=== PATIENT | female | born 1950 | race Caucasian/White ===

== ENCOUNTER 2017-02-04 00:15 | Emergency (ER) | payer BC, OTHER ==
--- NOTE | 2017-02-04 00:36 | ED.PDOC ---
History of Present Illness - General Chief Complaint: Abdominal Pain Stated Complaint: abdominal pain Time Seen by Provider: 02/04/17 00:25 Information Source: patient, RN notes reviewed, Vital Signs reviewed Exam Limitations: no limitations - History of Present Illness Initial Comments: Ms. Derrick Forrest Quinn 66 y/o female stated she had onset of sharp left upper quadrant abdominal pain after eating popcorn this afternoon which had been steady and pain getting worse felt nauseated but no vomiting no diarrhea, regular bm,no dysuria,no hematuria.She has dm2 and htn. Abdominal Pain Onset Location: [facility], other - 10 hours ago Pain Radiation: no radiation Quality: moderate, steady, stabbing Timing/Duration: constant Improving Factors: nothing Worsening Factors: other - standing and laying down Associated Symptoms: denies symptoms Review of Systems - Review of Systems Constitutional: States: no symptoms reported EENTM: States: no symptoms reported Respiratory: States: no symptoms reported Cardiology: States: no symptoms reported Gastrointestinal/Abdominal: States: see HPI Genitourinary: States: no symptoms reported Musculoskeletal: States: no symptoms reported Skin: States: no symptoms reported Neurological: States: no symptoms reported Endocrine: States: no symptoms reported Hematologic/Lymphatic: States: no symptoms reported Past Medical History (General) - Patient Medical History Hx Seizures: No Hx Stroke: No Hx Dementia: No Hx Asthma: No Hx of COPD: No Hx Cardiac Disorders: No Hx Congestive Heart Failure: No Hx Hypertension: Yes Hx Thyroid Disease: No Hx Diabetes: Yes - NIIDN Hx Gastroesophageal Reflux: Yes Hx Renal Disease: No Hx of HIV: No Surgical History: tonsillectomy, other - right knee,left foot - Social History Hx Tobacco Use: No - Activities of Daily Living Patient Lives Alone: No Grooming Ability: Independent Eating (Feeding) Ability: Independent Toileting Ability: Independent - Female History Patient is a Female of Child Bearing Age (10 -59 yrs old): No Family Medical History - Family History Mother Family History: Unknown Hx Family Hypertension: Yes - mom Physical Exam - Physical Exam General Appearance: Alert, No apparent distress Eyes, Ears, Nose, Throat Exam: PERRL/EOMI, normal ENT inspection, TMs normal, pharynx normal Neck: non-tender, full range of motion, supple Respiratory: chest non-tender, lungs clear, normal breath sounds Cardiovascular/Chest: normal peripheral pulses, regular rate, rhythm, no edema, no gallop, no JVD, no murmur Peripheral Pulses: No deficit Gastrointestinal/Abdominal: normal bowel sounds, no organomegaly, tenderness - left upper quadrant Back Exam: normal inspection, no CVA tenderness, no vertebral tenderness Extremity: normal range of motion, non-tender, normal inspection, no pedal edema , no calf tenderness Neurologic: no motor/sensory deficits, alert, normal mood/affect, oriented x 3 Progress - Results/Orders Results/Orders: 02/04/17 00:43 IV Care:Saline Lock per Protoc QSHIFT 02/04/17 01:00 URINALYSIS Stat 02/04/17 01:09 Lactated Ringers [Lr] 1,000 ml IVS ONCE 02/04/17 01:24 Abdomen/Pelvis w/Contrast [CT] Stat 02/04/17 01:25 Hold Metformin x 48Hrs [id number] Laboratory Results WBC 10.4 K/mm3 (4.8-10.8) 02/04/17 00:45 RBC 5.81 M/mm3 (4.20-5.40) H 02/04/17 00:45 Hgb 16.3 gm/dL (12.0-16.0) H 02/04/17 00:45 Hct 50.3 % (36.0-47.0) H 02/04/17 00:45 MCV 86.6 fl (81.0-99.0) 02/04/17 00:45 MCH 28.0 pg (27.0-31.0) 02/04/17 00:45 MCHC 32.4 g/dL (33.0-37.0) L 02/04/17 00:45 RDW 16.4 % (11.5-14.5) H 02/04/17 00:45 Plt Count 196 K/mm3 (130-400) 02/04/17 00:45 MPV 8.2 fl (7.40-10.4) 02/04/17 00:45 Absolute Neuts (auto) 8.60 K/uL (1.8-6.8) H 02/04/17 00:45 Absolute Lymphs (auto) 1.10 K/uL (1.0-3.4) 02/04/17 00:45 Absolute Monos (auto) 0.40 K/uL (0.2-0.8) 02/04/17 00:45 Absolute Eos (auto) 0.20 K/uL (0.0-0.4) 02/04/17 00:45 Absolute Basos (auto) 0.10 K/uL (0.0-0.1) 04 00:45 Neutrophils % 82.4 % (42.0-78.0) H 02/04/17 00:45 Lymphocytes % 10.5 % (20.0-50.0) L 02/04/17 00:45 Monocytes % 4.2 % (2.0-9.0) 02/04/17 00:45 Eosinophils % 2.3 % (1.0-5.0) 02/04/17 00:45 Basophils % 0.6 % (0.0-2.0) 02/04/17 00:45 D-Dimer, Quantitative 256 ng/mL (0-230) H* 02/04/17 00:45 Sodium 138 mmol/L (135-145) 02/04/17 00:45 Potassium 3.8 mmol/L (3.6-5.0) 02/04/17 00:45 Chloride 100 mmol/L (101-111) L 02/04/17 00:45 Carbon Dioxide 31 mmol/L (21-31) 02/04/17 00:45 Anion Gap 10.8 (12-18) L 02/04/17 00:45 BUN 12 mg/dL (7-18) 02/04/17 00:45 Creatinine 0.56 mg/dL (0.6-1.3) L 02/04/17 00:45 BUN/Creatinine Ratio 21.4 (10-20) H 02/04/17 00:45 Random Glucose 166 mg/dL (70-105) H 02/04/17 00:45 Serum Osmolality 279.2 mOsm/L (275-295) 02/04/17 00:45 Calcium 9.0 mg/dL (8.4-10.2) 02/04/17 00:45 Total Bilirubin 1.7 mg/dL (0.2-1.0) H 02/04/17 00:45 AST 109 IU/L (10-42) H 02/04/17 00:45 ALT 63 IU/L (10-60) H 02/04/17 00:45 Alkaline Phosphatase 131 IU/L (42-121) H 02/04/17 00:45 Serum Total Protein 7.7 gm/dL (6.4-8.2) 02/04/17 00:45 Albumin 4.3 g/dl (3.2-5.5) 02/04/17 00:45 Globulin 3.4 gm/dL (2.3-3.5) 02/04/17 00:45 Albumin/Globulin Ratio 1.3 (1.1-1.9) 02/04/17 00:45 Lipase 38 U/L (22-51) 02/04/17 00:45 Urine Color [place] (Yellow) H 02/04/17 01:00 Urine Appearance Sl cloudy (Clear) 02/04/17 01:00 Urine pH 5.5 (4.5-7.8) 02/04/17 01:00 Ur Specific [place] 1.025 (1.005-1.030) 02/04/17 01:00 Urine Protein 100 mg/dL H 02/04/17 01:00 Urine Glucose (UA) 500 mg/dL (Negative) H 02/04/17 01:00 Urine Ketones Trace mg/dL (NEGATIVE) 02/04/17 01:00 Urine Blood Negative (Negative) 02/04/17 01:00 Urine Nitrite Negative 02/04/17 01:00 Urine Bilirubin Moderate (NEGATIVE) 02/04/17 01:00 Urine Urobilinogen 1.0 mg/dL (0.2-1.0) 02/04/17 01:00 Ur Leukocyte Esterase Negative (Negative) 02/04/17 01:00 Urine RBC 0-1 /hpf 02/04/17 01:00 Urine WBC 20-30 /hpf H 02/04/17 01:00 Ur Epithelial Cells 10-20 /hpf 02/04/17 01:00 Urine Bacteria 1+ 02/04/17 01:00 Vital Signs - 24 hr 02/04/17 00:31 Temperature 98.2 F Pulse Rate [ 87 Tele] Respiratory 22 Rate Blood Pressure 160/128 [left forearm] O2 Sat by Pulse 88 L Oximetry - EKG/XRAY/CT EKG: Sinus - NSR,fascicular block, no ST T wave changes CT: abdomen/pelvis:hepatic steatosis;colonic diverticulosis,NO diverticulitis Departure - Departure Clinical Impression: Abdominal pain Qualifiers: Abdominal location: left upper quadrant Qualifier Code: (R10.12) Left upper quadrant pain Urinary tract infection Qualifiers: Urinary tract infection type: site unspecified Hematuria presence: without hematuria Qualifier Code: (N39.0) Urinary tract infection, site not specified Time of Disposition: 02:45 Disposition: Discharge to Home or Self Care Departure Forms: ED Discharge - Pt. Copy, Patient Portal Self Enrollment Instructions: DI for Abdominal Pain-Adult Diet: low fat, low cholesterol, diabetic diet, low salt diet, other - AVOID GREASY SPICY FOODS UNTIL BETTER Prescriptions: Nitrofurantoin Monohydrate Mac [Macrobid] 100 mg PO BID #10 cap Home Medications: Ambulatory Orders Cyclobenzaprine HCl [Flexeril] 10 mg PO BEDTIME #10 tab 02/19/15 Fesoterodine Fumarate [Toviaz] 4 mg PO DAILY 02/19/15 Hydrochlorothiazide 25 mg PO DAILY 02/19/15 Ibuprofen [Motrin] 600 mg PO TID PRN #20 tab 02/19/15 Losartan Potassium/Hydroc 100-25 mg 100 mg PO DAILY 02/19/15 Methylprednisolone [Medrol Dose Ezequiel] 4 mg PO DAILY #1 pack 02/19/15 Pantoprazole Sodium 40 mg PO DAILY 02/19/15 Pregabalin [Lyrica] 150 mg PO DAILY 02/19/15 Tramadol HCl 50 mg PO Q6-8H PRN #10 tab 02/19/15 Nitrofurantoin Monohydrate Mac [Macrobid] 100 mg PO BID #10 cap 02/04/17 Additional Instructions: CONTINUE WITH HOME MEDICATIONS;FOLLOW UP WITH PRIMARY MD 02/06/2017 patient to call for appointment
[2017-02-04] MEDS ORDERED: LACTATED RINGERS 1,000 ML IVS PRN (00:53)
[2017-02-04] MEDS ORDERED: LACTATED RINGERS 1,000 ML IVS ONE (01:09)
[2017-02-04] MEDS ORDERED: MORPHINE SULFATE INJ 10 MG/ML VIAL IV ONE (01:25)
[2017-02-04] MEDS ORDERED: PROCHLORPERAZINE INJ 10 MG/2 ML VIAL IV ONE (01:26)
--- NOTE | 2017-02-04 02:22 | CT ---
EXAM: CT ABDOMEN PELVIS WITH CONTRAST CLINICAL INDICATION: pain, MAIN TECHNIQUE: Multiple axial CT images of the abdomen and pelvis were obtained after the uneventful administration of intravenous, but no oral contrast. Coronal and sagittal reformatted images were included This exam was performed according to our departmental dose-optimization program which includes use of Automated Exposure Control, adjustment of the mA and/or kV according to patient size and/or use of iterative reconstruction technique. COMPARISON: None. FINDINGS: Chest: The visualized lung bases are clear, without nodule, lung masses or airspace consolidation. There are no pleural or pericardial effusions. Heart size appears within normal limits. Abdomen/Pelvis: The liver has normal size and contours. There is diffuse hepatic hypodensity. No focal intrahepatic mass lesion is identified. No abnormal enhancement appreciated within the liver parenchyma. There is no intra- or extrahepatic biliary ductal dilatation. Gallbladder is present. The spleen, pancreas and adrenal glands have a normal contrast enhanced CT appearance. The kidneys have a normal contrast enhanced appearance, with homogeneous enhancement, and there is no obstructive uropathy. There is scattered diverticulosis without CT evidence of diverticulitis Loops of bowel are normal in caliber, without signs of obstruction or adjacent inflammatory changes. A normal appendix is not confidently identified, but no inflammatory changes are identified in the right lower quadrant, or elsewhere in the abdomen. Uterus and adnexa have an unremarkable contrast enhanced appearance.. Urinary bladder is grossly unremarkable. No free air or free fluid in the abdomen or pelvis. No enlarged lymphadenopathy identified in the abdomen or pelvis. Visualized vascular structures are grossly unremarkable, with normal course and caliber of the aorta and branch vessels. No suspicious osseous lesions identified. There is multilevel degenerative disc disease, most advanced at L3-L4. There are moderate hypertrophic degenerative changes of the visualized spine. IMPRESSION: 1. No CT evidence for acute intra-abdominal process. 2. diverticulosis of CT evidence of diverticulitis. 3. Moderate diffuse hepatic steatosis. Electronically signed by: Mychal Hicks MD 02/04/2017 2:22 AM CDT
[2017-02-04] MEDS ORDERED: NITROFURANTOIN MONO (ER DISP) 100 MG CAP PO ONE (02:40)
[2017-02-04 03:03] VITALS: BP 128/89; TEMP 97.4; O2SAT 92
== END 2017-02-04 06:05 | disposition home or self-care (01) ==
LOC: ER 00:15
DX: N39.0 Urinary tract infection, site not specified (principal); R10.12 Left upper quadrant pain; K21.9 Gastro-esophageal reflux disease without esophagitis; E11.9 Type 2 diabetes mellitus without complications; I10 Essential (primary) hypertension
CPT/HCPCS: 36415; 74177; 80053; 81001; 83690; 85025; 85379; 87086; 93005; J0780; J2270; J7120

== ENCOUNTER → 2018-01-13 | Outpatient (CLI) | payer MEDICARE, OTHER | LOC: GMAB 11:55 | PROVIDERS: ATTEND Family Medicine | DX: I10 Essential (primary) hypertension (principal) ==

== ENCOUNTER → 2018-01-21 | Outpatient (CLI) | payer MEDICARE, OTHER ==
--- NOTE | 2018-01-23 15:27 | MAM ---
EXAM DESCRIPTION: 3D Screening BILATERAL : Digital Mammography. CLINICAL HISTORY: 67 years Female SCREENING . No complaints. No family history of breast cancer. Postmenopausal. No HRT. COMPARISON: 2-D digital screening bilateral study 05/02/2009. No prior reports available. TECHNIQUE: Bilateral CC and MLO projection full-field images, 3-D tomosynthesis digital mammographic technique. Also bilateral synthesized CC/ MLO full-field images. CAD not utilized. FINDINGS: The breast parenchymal density pattern is: Almost entirely fatty. No skin thickening or nipple retraction bilateral axillary lymph nodes, larger on the left. Bilateral solitary microcalcifications, more on the left.. No focal, stellate mass or density, focal asymmetry , and no suspicious microcalcifications bilaterally. Stable mammograms compared to prior study, taking into account differences in mammographic technique IMPRESSION: BI-RADS CATEGORY: 2 - BENIGN FINDINGS. FOLLOW UP: Routine digital bilateral screening, one year interval from January 2018. Written communication explaining the IMPRESSION and follow-up, will be mailed to the patient and referring health care provider. According to the [employer], yearly mammograms are recommended starting at age 40 and continuing as long as a woman is in good health. Any breast change noted on a breast self-exam should be reported promptly to the patient's healthcare provider. Breast MRI is recommended for women with an approximately 20-25% or greater lifetime risk of breast cancer, including women with a strong family history of breast or ovarian cancer and women who have been treated for Hodgkin's disease. A negative mammographic report should not delay tissue diagnosis in patients with significant clinical history or physical findings. Extremely dense breast tissue limits the sensitivity of digital mammography. Electronically signed by: Michael Cruz MD 01/23/2018 3:26 PM CDT
== END | disposition home or self-care (01) ==
LOC: MAMMO 08:30
PROVIDERS: ATTEND Family Medicine
DX: Z12.31 Encounter for screening mammogram for malignant neoplasm of breast (principal)

== ENCOUNTER 2018-12-12 14:35 | Emergency (ER) | payer MEDICARE, OTHER ==
[2018-12-12] MEDS ORDERED: diltiaZEM DRIP 125 MG/25 ML VIAL IVPB ONE (16:11)
[2018-12-12] MEDS ORDERED: SODIUM CHLORIDE 0.9% 100ML 100 ML IVPB ONE (16:12)
--- NOTE | 2018-12-12 16:12 | ED.PDOC ---
History of Present Illness - General Chief Complaint: General Stated Complaint: Tachycardia Time Seen by Provider: 12/12/18 16:09 Source: patient, RN notes reviewed Exam Limitations: no limitations - History of Present Illness Initial Comments: THIS PATIENT RECENTLY UNDERWENT A SLEEVE SURGERY BY DR. MICHEL. YESTERDAY HOME HEALTH NURSE CHECKED ON HER AND WAS NOTED TO HAVE TACHYCARDIA OF AROUND 140. SHE WAS SEEN AGAIN TODAY AND HER TACHYCARDIA CONTINUED. SHE WAS SENT OVER TO THE ED. THE PATIENT OTHERWISE SAYS SHE IS ASYMPTOMATIC. DENIES ANY SOB OR CP Timing/Duration: unsure, other - TWO DAYS Severity: moderate Improving Factors: nothing Worsening Factors: nothing Associated Symptoms: denies symptoms Allergies/Adverse Reactions: Allergies Penicillin G Allergy (Mild, Verified 12/12/18 15:11) Home Medications: Ambulatory Orders Fesoterodine Fumarate [Toviaz] 4 mg PO DAILY 02/19/15 Pregabalin [Lyrica] 150 mg PO DAILY 02/19/15 Review of Systems - Review of Systems Constitutional: States: no symptoms reported EENTM: States: no symptoms reported Respiratory: States: no symptoms reported Cardiology: States: palpitations Gastrointestinal/Abdominal: States: no symptoms reported Genitourinary: States: no symptoms reported Musculoskeletal: States: no symptoms reported Skin: States: no symptoms reported Neurological: States: no symptoms reported Past Medical History (General) - Patient Medical History Hx Seizures: No Hx Stroke: No Hx Dementia: No Hx Asthma: No Hx of COPD: No Hx Cardiac Disorders: No Hx Congestive Heart Failure: No Hx Hypertension: Yes Hx Thyroid Disease: No Hx Diabetes: No - No current dx but feels she may be diabetic Hx Gastroesophageal Reflux: Yes Hx Renal Disease: No Hx of HIV: No Hx MRSA: No Surgical History: other - Vaccination History Hx Tetanus, Diphtheria Vaccination: Yes Hx Influenza Vaccination: Yes Hx Pneumococcal Vaccination: Yes Immunizations Up to Date: Yes - Social History Hx Tobacco Use: No Hx Alcohol Use: No Hx Substance Use: No Hx Substance Use Treatment: No Hx Depression: No Hx Physical Abuse: No Hx Emotional Abuse: No Hx Suspected Abuse: No Family Medical History - Family History Mother Family History: Unknown Living Status: Hx Family Hypertension: Yes - mom Physical Exam - Physical Exam General Appearance: Alert, Anxious, Obese, Well Developed, Well Groomed Eye Exam: bilateral normal Ears, Nose, Throat: hearing grossly normal, normal ENT inspection Neck: non-tender, full range of motion, supple Respiratory: chest non-tender, lungs clear, normal breath sounds, no respiratory distress, no accessory muscle use Cardiovascular/Chest: normal peripheral pulses, no murmur, tachycardia, irregularly irregular Peripheral Pulses: radial,right: 2+, radial,left: 2+ Gastrointestinal/Abdominal: normal bowel sounds, non tender, soft Extremity: normal range of motion, non-tender Neurologic: alert, normal mood/affect, oriented x 3 Progress - Progress Progress: 12/12/18 18:54 12/12/18 14:30 EKG .ONCE 12/12/18 16:30 diltiaZEM DRIP [Cardizem Drip] 125 mg Sodium Chloride 0.9% 100Ml [NS (NACL 0.9%) 100ml] 100 ml IVPB PRN 12/12/18 17:20 CTA Chest [CT] Stat Laboratory Results WBC 12.1 K/mm3 (4.8-10.8) H 12/12/18 16:33 RBC 5.48 M/mm3 (4.20-5.40) H 12/12/18 16:33 Hgb 16.1 gm/dL (12.0-16.0) H 12/12/18 16:33 Hct 48.6 % (36.0-47.0) H 12/12/18 16:33 MCV 88.6 fl (81.0-99.0) 12/12/18 16:33 MCH 29.3 pg (27.0-31.0) 12/12/18 16:33 MCHC 33.1 g/dL (33.0-37.0) 12/12/18 16:33 RDW 14.8 % (11.5-14.5) H 12/12/18 16:33 Plt Count 238 K/mm3 (130-400) 12/12/18 16:33 MPV 9.0 fl (7.40-10.4) 12/12/18 16:33 Absolute Neuts (auto) 9.80 K/uL (1.8-6.8) H 12/12/18 16:33 Absolute Lymphs (auto) 1.40 K/uL (1.0-3.4) 12/12/18 16:33 Absolute Monos (auto) 0.70 K/uL (0.2-0.8) 12/12/18 16:33 Absolute Eos (auto) 0.10 K/uL (0.0-0.4) 12/12/18 16:33 Absolute Basos (auto) 0.10 K/uL (0.0-0.1) 12/12/18 16:33 Neutrophils % 81.2 % (42.0-78.0) H 12/12/18 16:33 Lymphocytes % 11.9 % (20.0-50.0) L 12/12/18 16:33 Monocytes % 5.5 % (2.0-9.0) 12/12/18 16:33 Eosinophils % 0.9 % (1.0-5.0) L 12/12/18 16:33 Basophils % 0.5 % (0.0-2.0) 12/12/18 16:33 D-Dimer, Quantitative 3.77 mg/L FEU (0-0.49) H* 12/12/18 16:33 Sodium 137 mmol/L (135-145) 12/12/18 16:33 Potassium 3.2 mmol/L (3.6-5.0) L 12/12/18 16:33 Chloride 98 mmol/L (101-111) L 12/12/18 16:33 Carbon Dioxide 26 mmol/L (21-31) 12/12/18 16:33 Anion Gap 16.2 (12-18) 12/12/18 16:33 BUN 23 mg/dL (7-18) H 12/12/18 16:33 Creatinine 1.00 mg/dL (0.6-1.3) 12/12/18 16:33 BUN/Creatinine Ratio 23.0 (10-20) H 12/12/18 16:33 Random Glucose 117 mg/dL (70-105) H 12/12/18 16:33 Serum Osmolality 278.5 mOsm/L (275-295) 12/12/18 16:33 Calcium 8.8 mg/dL (8.4-10.2) 12/12/18 16:33 Total Bilirubin 1.2 mg/dL (0.2-1.0) H 12/12/18 16:33 AST 21 IU/L (10-42) 12/12/18 16:33 ALT 27 IU/L (10-60) 12/12/18 16:33 Alkaline Phosphatase 100 IU/L (42-121) 12/12/18 16:33 Troponin I 0.19 ng/mL (0.01-0.05) H* 12/12/18 16:33 B-Natriuretic Peptide 553.0 pg/ml (0-100) H* 12/12/18 16:33 Serum Total Protein 7.0 gm/dL (6.4-8.2) 12/12/18 16:33 Albumin 3.8 g/dl (3.2-5.5) 12/12/18 16:33 Globulin 3.2 gm/dL (2.3-3.5) 12/12/18 16:33 Albumin/Globulin Ratio 1.2 (1.1-1.9) 12/12/18 16:33 12/12/18 18:55 SHE HAS GONE TO [facility] AND BECAME CLAUSTROPHOBIC AND BECAME TACHYCARDIC AGAIN. I WILL GIVE AN EXTRA DOSE OF CARDIZEM AND ALSO INCREASE THE CARDIZEM TO 15 MG/HR. ELEVATION OF D-DIMER, ELEVATION OF THE TROP I . WILL TRANSFER TO [facility]. 12/12/18 19:[address] FLORES- HE ACCEPTS THE PATIENT. Departure - Departure Clinical Impression: Atrial fibrillation with RVR, NSTEMI (non-ST elevated myocardial infarction), Elevated d-dimer Time of Disposition: 19:09 Disposition: Transfer to Hospital Condition: Fair Home Medications: Ambulatory Orders Fesoterodine Fumarate [Toviaz] 4 mg PO DAILY 02/19/15 Pregabalin [Lyrica] 150 mg PO DAILY 02/19/15 Transfer to Outside Facility - Transfer Information Accepting Provider:: DR. FLORES Accepting Facility: [facility] Reason for Transfer: required specialist not available
--- NOTE | 2018-12-12 16:26 | RAD ---
EXAM DESCRIPTION: Chest,1 View CLINICAL HISTORY: 68 years Female SOB COMPARISON: 01/15/2011 FINDINGS: Heart is enlarged. There is central pulmonary vascular congestion and bilateral infiltrates worse in the lower lung yin which may reflect developing edema. Definite pleural fluid or pneumothorax is not noted. IMPRESSION: Cardiac enlargement with prominence of the central bony vasculature and patchy areas of density in the lung bases which may reflect areas of developing edema or infiltrate Electronically signed by: Nguyen Vang MD 12/12/2018 4:22 PM STACK CLERK
[2018-12-12] MEDS ORDERED: diltiaZEM DRIP 125 MG in SODIUM CHLORIDE 0.9% 100ML 100 ML IVPB SCH (16:30)
[2018-12-12] MEDS ORDERED: SODIUM CHLORIDE 0.9% 1000ML 1,000 ML IVS ONE (19:21)
[2018-12-12] MEDS ORDERED: DIGOXIN INJ 0.5 MG/2 ML AMP IV ONE (19:33)
[2018-12-12 20:18] VITALS: BP 108/53; O2SAT 93
[2018-12-12 20:48] VITALS: TEMP 97
== END 2018-12-12 20:35 | disposition short-term general hospital (02) ==
LOC: ER 14:35
DX: I21.4 Non-ST elevation (NSTEMI) myocardial infarction (principal); I48.91 Unspecified atrial fibrillation; R00.0 Tachycardia, unspecified; R79.89 Other specified abnormal findings of blood chemistry; I10 Essential (primary) hypertension; K21.9 Gastro-esophageal reflux disease without esophagitis; Z88.0 Allergy status to penicillin; Z79.899 Other long term (current) drug therapy; Z98.890 Other specified postprocedural states
CPT/HCPCS: 36415; 71045; 80053; 83880; 84484; 85025; 85379; 93005; J1160; J7050

== ENCOUNTER 2018-12-23 19:51 | Inpatient (IN) | payer MEDICARE, OTHER ==
[2018-12-23] MEDS ORDERED: IPRATROPIUM/ALBUTEROL 3 ML VIAL NEB ONE ×2 (20:17→21:28)
--- NOTE | 2018-12-23 20:21 | ED.PDOC ---
History of Present Illness - General Time Seen by Provider: 12/23/18 20:09 Source: patient Exam Limitations: no limitations - History of Present Illness Initial Comments: Pt has been SOB x 2 4 hrs. This am she started coughing and having hemoptysis. She denies chest pain, tachycardia, N/V, or fever, but has had chills. Recently had episode of AFIB with RVR Timing/Duration: days - one Severity: severe Activities at Onset: none Possible Cause: no prior episodes Improving Factors: immobilization Worsening Factors: movement Associated Symptoms: cough, fever, wheezing Respiratory Risk Factors: no cause identified Allergies/Adverse Reactions: Allergies Penicillin G Allergy (Mild, Verified 12/23/18 21:19) Home Medications: Ambulatory Orders Fesoterodine Fumarate [Toviaz] 4 mg PO DAILY 02/19/15 Pregabalin [Lyrica] 150 mg PO DAILY 02/19/15 Atenolol [Tenormin] 25 mg PO DAILY 12/23/18 Dabigatran Etexilate Mesylate [Pradaxa] 150 mg PO DAILY 12/23/18 Digoxin [Digox] 0.125 mg PO DAILY 12/23/18 Diltiazem HCl Coated Beads [Diltiazem Hydrochloride E] 240 mg PO DAILY 12/23/18 Review of Systems - Review of Systems Constitutional: States: chills, fever EENTM: States: nose congestion Respiratory: States: cough, short of breath, wheezing Cardiology: States: edema. Denies: chest pain Gastrointestinal/Abdominal: Denies: abdominal pain, nausea, vomiting Genitourinary: States: no symptoms reported Musculoskeletal: States: no symptoms reported Skin: States: no symptoms reported Neurological: States: no symptoms reported Endocrine: States: no symptoms reported Past Medical History (General) - Patient Medical History Hx Seizures: No Hx Stroke: No Hx Dementia: No Hx Asthma: No Hx of COPD: No Hx Cardiac Disorders: No Hx Congestive Heart Failure: No Hx Hypertension: Yes Hx Thyroid Disease: No Hx Diabetes: No - No current dx but feels she may be diabetic Hx Gastroesophageal Reflux: Yes Hx Renal Disease: No Hx of HIV: No Hx MRSA: No - Vaccination History Hx Tetanus, Diphtheria Vaccination: Yes Hx Influenza Vaccination: Yes Hx Pneumococcal Vaccination: Yes - Social History Hx Tobacco Use: No Hx Alcohol Use: No Hx Substance Use: No Hx Substance Use Treatment: No Hx Depression: No Hx Physical Abuse: No Hx Emotional Abuse: No Hx Suspected Abuse: No Family Medical History - Family History Mother Family History: Unknown Living Status: Hx Family Hypertension: Yes - mom Physical Exam - Physical Exam General Appearance: Alert, Obvious distress Eyes, Ears, Nose, Throat Exam: PERRL/EOMI, pharynx normal Neck: non-tender, full range of motion Respiratory: chest non-tender, decreased breath sounds, rhonchi, wheezing Cardiovascular/Chest: regular rate, rhythm Extremity: non-tender, pedal edema Neurologic: alert, normal mood/affect, oriented x 3 Skin Exam: normal color, warm/dry Lymphatic: no adenopathy Progress - EKG/XRAY/CT EKG: Sinus, no ST T wave changes Comments: rate 61, TN 164, QRS 104 Departure - Departure Clinical Impression: Hypoxemia Pneumonia Qualifiers: Laterality: left Lung location: lower lobe of lung Disposition: Admit Patient Departure Forms: ED Discharge - Pt. Copy, Patient Portal Self Enrollment Referrals: VIJAYA LAU MD [Primary Care Provider] - 1-2 Weeks Home Medications: Ambulatory Orders Fesoterodine Fumarate [Toviaz] 4 mg PO DAILY 02/19/15 Pregabalin [Lyrica] 150 mg PO DAILY 02/19/15 Atenolol [Tenormin] 25 mg PO DAILY 12/23/18 Dabigatran Etexilate Mesylate [Pradaxa] 150 mg PO DAILY 12/23/18 Digoxin [Digox] 0.125 mg PO DAILY 12/23/18 Diltiazem HCl Coated Beads [Diltiazem Hydrochloride E] 240 mg PO DAILY 12/23/18 Decision To Admit - Decistion To Admit Decision to Admit Reason: Admit from ER Decision to Admit Date: 12/23/18 Decision to Admit Time: 21:36
--- NOTE | 2018-12-23 20:40 | RAD ---
EXAM DESCRIPTION: Chest,1 View CLINICAL HISTORY: Shortness of breath COMPARISON: Chest radiograph dated December 10, 2018 TECHNIQUE: Single upright portable frontal view of the chest FINDINGS: Cardiac silhouette shows cardiomegaly with central pulmonary vascular congestion and interstitial edema. Increased opacities in the left mid lung and bilateral lower lung zones most likely represent pulmonary edema. Underlying infiltrate cannot be excluded. Suspect small left-sided pleural effusion. There is no pneumothorax. Degenerative changes of the right shoulder. IMPRESSION: 1. Cardiomegaly with central pulmonary vascular congestion and interstitial edema, compatible with congestive heart failure. 2. Increased opacities in the left lung and right lower lung zone, most compatible with pulmonary edema. Underlying infiltrate cannot be entirely excluded. Electronically signed by: Oscar Samayoa MD 12/23/2018 8:37 PM [employer]
[2018-12-23] MEDS ORDERED: NITROGLYCERIN 0.4 MG 25 EA TAB SL ONE (20:43)
[2018-12-23] MEDS ORDERED: FUROSEMIDE INJ 40 MG/4 ML VIAL IV ONE (20:43)
[2018-12-23] MEDS: SODIUM CHLORIDE 0.9% (FLUSH) 10 ML SYG IV PRN (21:05)
[2018-12-23] MEDS ORDERED: levoFLOXacin 750MG IV 750 MG in PREMIX BAG 1 BAG IVPB ONE (21:29)
--- NOTE | 2018-12-23 22:32 | HP ---
SUPERVISING PHYSICIAN: Tej Mccabe MD CHIEF COMPLAINT: Shortness of breath. HISTORY OF PRESENT ILLNESS: Ms. Guevara is a 68-year-old female patient who presented to the Emergency Room last night complaining of 24 hours of worsening shortness of breath. She noted she started to cough and had some hemoptysis. She denied any chest pain, tachycardia, nausea, vomiting or fevers. She did have some chills. Surgical history includes a recent gastric sleeve procedure done in November of [address] [place] [address] Gibbons. She did well postoperatively and then on the , developed atrial fibrillation requiring treatment with Cardizem and was in the hospital in [place] from the through the . She was sent home on Cardizem, digoxin and Pradaxa. She noted she had felt good and the night before last, she had a little episode of urinary incontinence, went to take a shower and became very short of breath that resolved when she went to bed. She noted she is now having more shortness of breath with any exertional effort. Laboratory studies showed she had a mild leukocytosis with a left shift. Chemistries showed she had elevated BNP at 228. Chest x-ray per radiologic interpretation indicated some cardiomegaly with central pulmonary vascular congestion compatible with congestive heart failure along with increased opacities in the left lung and right lower lung, most compatible with pulmonary edema, however, could not entirely exclude an infiltrate. She was given a dose of Lasix as well as started on antibiotics to include Levaquin. Given her symptomatology and findings on x-rays with concerns for both some degree of congestive heart failure exacerbation along with what appears to be developing bilateral pneumonia, the patient is now going to be admitted for further treatment and evaluation. She was admitted in stable condition. PAST MEDICAL HISTORY: 1. Hypertension. 2. Morbid obesity. 3. Diabetes mellitus, type 2, on oral therapy. PAST SURGICAL HISTORY: 1. Gastric sleeve 12/08/18. 2. Tonsils and adenoids. 3. Right knee surgery secondary to infection with complications post infection in 2010. 4. Left total knee arthroplasty in 2017. 5. Joint fusion of left ankle in 1999 secondary to multiple steroid injections. HOME MEDICATIONS: 1. Lyrica 150 mg daily. 2. Atenolol 25 mg daily. 3. Pradaxa 150 mg daily. 4. Diltiazem 240 mg daily coated beads. 5. Digoxin 0.125 mg daily. 6. Toviaz 4 mg daily. ALLERGIES: PENICILLIN G. FAMILY HISTORY: Mother at age 80 and had history of hypertension. Father at age 90 and was healthy. She has one brother who has asthma. She has no children. SOCIAL HISTORY: The patient is single and lives in [place]. 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 She has never smoked and rarely drinks alcohol. REVIEW OF SYSTEMS: CONSTITUTIONAL: Positive for chills, fever, general malaise. HEENT: Positive for nasal congestion. Negative for sore throats, earaches, visual disturbances. RESPIRATORY: Positive for coughing, shortness of breath, wheezing and hemoptysis. CARDIOVASCULAR: Positive for some mild edema. Negative for chest pain, palpitations. She has a history of atrial fibrillation. GASTROINTESTINAL: Negative for nausea, vomiting, constipation or abdominal pain. GENITOURINARY: Negative for dysuria, hematuria, polyuria or other urinary symptoms. NEUROLOGIC: Negative for ataxia, seizure activity, syncopal episodes or other focal neurologic deficits. PHYSICAL EXAMINATION: VITAL SIGNS: Temperature 99.4. Pulse 67. Blood pressure 151/85. Respirations 18. Oxygen saturation 93% on 3 liters nasal cannula. Admission 181.8 kg. GENERAL: The patient appears to be a little anxious, but she is alert, in no obvious acute distress. HEENT: Tympanic membranes clear bilaterally. Oropharynx is pink, moist without any lesions. NECK: Supple, nontender with full range of motion. RESPIRATORY: Lung sounds are diminished bilaterally with some notable rhonchi, more prominent on the left lateral chest wall. CARDIOVASCULAR: Regular rate and rhythm without any appreciable murmurs, gallops, or rubs. ABDOMEN: Soft, obese, nontender. Positive bowel sounds. EXTREMITIES: Trace of pedal edema bilaterally. There is no cyanosis, clubbing. NEUROLOGIC: The patient is alert and oriented times three. EKG showed a sinus rhythm with no ST or T wave changes with a heart rate of 61. LABORATORY: CBC shows leukocytosis of 12,100 with a left shift. Chemistries showed normal electrolytes with BUN 10, creatinine 0.71, magnesium 2.2, calcium 8.7, glucose 137, total bilirubin slightly elevated at 1.3. AST, ALT within normal limits with alkaline phosphatase elevated at 132. BNP elevated at 228. Digoxin levels pending. Urinalysis pending. MICROBIOLOGY: Blood cultures pending. Influenza A and B by PCR was negative. RADIOLOGY: Chest x-ray per radiologic interpretation shows cardiomegaly with central pulmonary vascular congestion and interstitial edema compatible with congestive heart failure with increased opacities in the left lung and right lower lung zones, most compatible with pulmonary edema. Underlying infiltrate cannot be entirely excluded. ASSESSMENT: 1. Bilateral pneumonia with concerns for healthcare acquired versus community acquired with the patient having recently had a gastric sleeve surgery performed within the last 30 days. 2. Hypoxia secondary to #1, requiring supplemental oxygen in a patient without a history of oxygen dependency. 3. Acute congestive heart failure without a current echocardiogram to review, etiology uncertain, but elevation on BNP on admission with radiographic studies indicating some pulmonary vascular congestion and possible pulmonary edema. 4. New diagnosis of atrial fibrillation on Pradaxa, digoxin and Cardizem with current EKG indicating normal sinus rhythm. 5. Hypertension. 6. Type 2 diabetes mellitus on oral therapy. PLAN: The patient is going to be admitted to the Medical/Surgical Floor for further treatment and evaluation with developing bilateral pneumonia and exacerbation of acute congestive heart failure. She was given Lasix in the Emergency Room and we will reevaluate in the morning to further assess the need for additional Lasix. She has been started on antibiotics to include Levaquin. She will have aggressive pulmonary hygiene with q.i.d. DuoNeb treatments and albuterol as needed. We will review her medications and resume those as appropriate once updated. We will repeat labs as necessary and chest x-ray to follow her clinical progression. Until she can transition to outpatient management, we will continue to monitor and treat as needed. We anticipate at least 2 or 3 days of treatment course. Once discharged, she will need outpatient followup with her primary care physician, Dr. Mccabe. #[id number] [facility]AYLA
[2018-12-23] MEDS ORDERED: ALBUTEROL SULFATE 2.5 MG/3 ML VIAL NEB PRN (23:25)
[2018-12-23] MEDS ORDERED: ONDANSETRON INJ 4 MG/2 ML VIAL IV PRN (23:25)
[2018-12-23] MEDS ORDERED: IV SET AND CAP CHANGE INJ INJ SCH (23:30)
[2018-12-23] MEDS ORDERED: PROMETHAZINE W/CODEINE SYR 5 ML UD PO PRN (23:31)
[2018-12-24] MEDS: PANTOPRAZOLE SODIUM IV 40 MG VIAL IV SCH (05:38)
--- NOTE | 2018-12-24 07:11 | RAD ---
EXAM DESCRIPTION: Chest,2 Views CLINICAL HISTORY:68 years Female, Pneumonia Comparison: December 23, 2018 FINDINGS: Enlarged cardiac silhouette with mild vascular congestion and bilateral pulmonary edema, slightly improved from prior. Superimposed infection not excluded. Possible trace bilateral pleural effusions. No pneumothorax. Electronically signed by: Aftab Apodaca MD 12/24/2018 7:07 AM [employer]
[2018-12-24] MEDS: IPRATROPIUM/ALBUTEROL 3 ML VIAL INH SCH ×4 (08:25→20:28)
[2018-12-24] MEDS ORDERED: NON-FORMULARY MEDICATION 1 EA MIS (Pregabalin [Lyrica] 150 MG) PO SCH (09:00)
[2018-12-24] MEDS ORDERED: ATENOLOL 25 MG TAB PO SCH ×2 (09:00→21:00)
[2018-12-24] MEDS ORDERED: NON-FORMULARY MEDICATION 1 EA MIS (Dabigatran Etexilate Mesylate [Pradaxa] 150 MG) PO SCH ×2 (09:00)
[2018-12-24] MEDS ORDERED: FESOTERODINE FUMARATE 4 MG PO SCH (09:00)
[2018-12-24] MEDS: ATENOLOL 25 MG TAB PO SCH (10:08)
[2018-12-24] MEDS: TOLTERODINE TARTRATE ER 4 MG CAP PO SCH (10:08)
[2018-12-24] MEDS: DABIGATRAN ETEXILATE 75 MG CAP PO SCH ×2 (10:08→21:18)
[2018-12-24] MEDS: PREGABALIN 75 MG CAP PO SCH (10:09)
[2018-12-24] MEDS: DIGOXIN 0.125 MG TAB PO SCH (10:09)
[2018-12-24] MEDS: levoFLOXacin 750MG IV 750 MG in PREMIX BAG 1 BAG IVPB SCH ×2 (11:59→19:59)
[2018-12-24] MEDS: FUROSEMIDE INJ 20 MG/2 ML VIAL IV SCH ×2 (11:59→17:36)
[2018-12-24] MEDS: POTASSIUM CHLORIDE 20 MEQ TAB PO SCH (17:34)
--- NOTE | 2018-12-24 17:38 | PN ---
DATE: 12/24/18 SUPERVISING PHYSICIAN: Adrian Mccabe M.D. SUBJECTIVE: The patient states she feels a little bit better than she did yesterday. She did not sleep well last night, had some coughing episodes but otherwise feels like she is not as short of breath as she was. OBJECTIVE: Blood pressure 113/79, heart rate 59, respiratory rate 20, temperature 98.5, oxygen saturation 94%. GENERAL: Ms. Guevara is a 68 year-old female who still looks ill in appearance but in no distress. HEENT: Head normocephalic and atraumatic. Eyes: Pupils are equal and reactive. Nose: No drainage. Throat: Moist mucosa. NECK: Supple, midline trachea. No jugular venous distention. CHEST: Symmetrical with equal rise and fall of the chest with inspiration and expiration. Lung sounds are diminished in the bases, otherwise clear to auscultation bilaterally. CARDIOVASCULAR: Regular rate and rhythm. Normal S1 and S2. ABDOMEN: Soft. Positive bowel sounds. Obese. EXTREMITIES: No significant edema. 2+ pulses. Capillary refill less than 2 seconds. NEUROLOGIC: The patient is alert and oriented. LABORATORY: White count 11.1 which is an improvement from 12.1. Hemoglobin 14.1, hematocrit 43.1, platelet count 214. Chemistry shows sodium 141, potassium 3.2,chloride 102, CO2 28, BUN 9, creatinine 0.73, glucose 127, calcium 8.4. Chest x-ray still exhibits some pulmonary vascular congestion but it is improved from previous exam. ASSESSMENT: 1. Bilateral pneumonia. 2. Congestive heart failure exacerbation. 3. Hypoxia secondary to #1 and #2. 4. Chronic atrial fibrillation on anticoagulation but currently in normal sinus rhythm. 5. Hypertension. 6. Diabetes mellitus type 2. PLAN: Will continue to treat the pneumonia as well as the congestive heart failure with current medications. I have ordered scheduled Lasix and potassium. Will continue to monitor cultures and deescalate when possible. Clinically she does look a little bit better than described yesterday. Will reevaluate chest x-ray and labs in the morning as well. #[id number] MTDD
[2018-12-25] MEDS: PANTOPRAZOLE SODIUM IV 40 MG VIAL IV SCH (06:18)
[2018-12-25] MEDS: POTASSIUM CHLORIDE 20 MEQ TAB PO SCH ×2 (08:00→16:56)
--- NOTE | 2018-12-25 08:01 | RAD ---
EXAM DESCRIPTION: Chest,1 View CLINICAL HISTORY: pneumonia COMPARISON: Chest x-ray December 24, 2018. FINDINGS: Portable frontal view the thorax was acquired. The study is severely underpenetrated due to large patient body habitus and limited portable technique. There is no gross significant interval change since the recent more diagnostic PA and lateral view of the thorax. IMPRESSION: Stable chest. Electronically signed by: Brendan Macias MD 12/25/2018 7:58 AM [facility]
[2018-12-25] MEDS: IPRATROPIUM/ALBUTEROL 3 ML VIAL INH SCH ×4 (08:45→20:24)
[2018-12-25] MEDS: FUROSEMIDE INJ 40 MG/4 ML VIAL IV SCH ×2 (08:54→16:57)
[2018-12-25] MEDS: PREGABALIN 75 MG CAP PO SCH (08:55)
[2018-12-25] MEDS: DABIGATRAN ETEXILATE 75 MG CAP PO SCH ×2 (08:55→21:25)
[2018-12-25] MEDS: DIGOXIN 0.125 MG TAB PO SCH (08:55)
[2018-12-25] MEDS: TOLTERODINE TARTRATE ER 4 MG CAP PO SCH (08:55)
[2018-12-25] MEDS: ATENOLOL 25 MG TAB PO SCH (08:56)
[2018-12-25] MEDS: SODIUM CHLORIDE 0.9% (FLUSH) 10 ML SYG IV PRN ×3 (08:59→20:03)
[2018-12-25] MEDS: methylPREDNISolone SODIUM SUC 40 MG/ML VIAL IV SCH ×3 (09:10→22:32)
[2018-12-25] MEDS: levoFLOXacin 750MG IV 750 MG in PREMIX BAG 1 BAG IVPB SCH ×2 (09:47→20:03)
--- NOTE | 2018-12-25 10:28 | PN ---
SUPERVISING PHYSICIAN: Tej Mccabe MD DATE: 12/25/18 SUBJECTIVE: The patient states she overall feels like she is breathing a little bit better, but feels like she has significant nasal congestion at this time. She did not sleep that great last night either. OBJECTIVE: VITAL SIGNS: Blood pressure 104/64. Heart rate 64. Respiratory rate 20. Temperature 97.8. Oxygen saturation 94%. GENERAL: Ms. Guevara is a 68-year-old female who is a little bit tachypneic this morning. NEUROLOGIC: The patient is alert. LUNGS: Diminished with expiratory wheezing. CARDIOVASCULAR: Regular rate and rhythm. Normal S1 and S2. ABDOMEN: Obese, soft. Positive bowel sounds. EXTREMITIES: Lower extremities without significant edema. Pulses 2+. Capillary refill less than 2 seconds. LABORATORY: White count 8.5, which is an improvement from 11.1. Hemoglobin 13.8, hematocrit 42.6, platelet count 216. Sodium 141, potassium 3.4, chloride 100, CO2 29, BUN 8, creatinine 0.72, glucose 129, calcium 8.4. Chest x-ray shows no significant change from yesterday's film. ASSESSMENT: 1. Bilateral pneumonia. 2. Congestive heart failure with exacerbation. 3. Hypoxia secondary to #1 and #2. 4. Chronic atrial fibrillation on anticoagulation, but current normal sinus rhythm. 5. Hypertension. 6. Diabetes mellitus, type 2. PLAN: At this time, I am going to add Flonase to her therapy due to the nasal congestion. Additionally, I am going to put her on scheduled steroids as this will probably help the congestion, but primarily she has this wheeze as well. I have increased the dose of Lasix to 40 mg twice daily from 20 mg twice daily. Chest x-ray still shows some pulmonary vascular congestion. She is still requiring 4 liters of oxygen via nasal cannula, so potentially that is causing her nasal congestion as well. I have asked respiratory to put a humidifier on that to see if it is helps as well. We will repeat lab work and chest x-ray tomorrow as well. #[id number] MTDD
[2018-12-25] MEDS: FLUTICASONE PROP 0.05% NASAL 16 GM BTTL BNAS SCH (11:15)
[2018-12-26] MEDS: methylPREDNISolone SODIUM SUC 40 MG/ML VIAL IV SCH (05:55)
[2018-12-26] MEDS: SODIUM CHLORIDE 0.9% (FLUSH) 10 ML SYG IV PRN (05:55)
[2018-12-26] MEDS: PANTOPRAZOLE SODIUM IV 40 MG VIAL IV SCH (06:04)
--- NOTE | 2018-12-26 06:32 | RAD ---
EXAM DESCRIPTION: Chest,1 View CLINICAL HISTORY:68 years Female, CHF, pneumonia Comparison: December 25, 2018 FINDINGS: Unchanged enlarged uterus with mild central vascular congestion and mild perihilar and bibasilar opacities representing pulmonary edema, atelectasis or pneumonia. No pneumothorax. Possible trace bilateral pleural effusions. Electronically signed by: Aftab Apodaca MD 12/26/2018 6:29 AM [employer]
[2018-12-26] MEDS: IPRATROPIUM/ALBUTEROL 3 ML VIAL INH SCH ×3 (08:08→16:45)
[2018-12-26] MEDS: POTASSIUM CHLORIDE 20 MEQ TAB PO SCH ×2 (08:18→17:04)
[2018-12-26] MEDS ORDERED: PANTOPRAZOLE SODIUM TAB 40 MG PO SCH (08:27)
[2018-12-26] MEDS: DABIGATRAN ETEXILATE 75 MG CAP PO SCH (08:49)
[2018-12-26] MEDS: PREGABALIN 75 MG CAP PO SCH (08:53)
[2018-12-26] MEDS: TOLTERODINE TARTRATE ER 4 MG CAP PO SCH (08:56)
[2018-12-26] MEDS: DIGOXIN 0.125 MG TAB PO SCH (08:56)
[2018-12-26] MEDS: ATENOLOL 25 MG TAB PO SCH (08:57)
[2018-12-26] MEDS: FUROSEMIDE INJ 40 MG/4 ML VIAL IV SCH ×2 (08:58→17:04)
[2018-12-26] MEDS: FLUTICASONE PROP 0.05% NASAL 16 GM BTTL BNAS SCH (08:59)
[2018-12-26] MEDS ORDERED: levoFLOXacin 500 MG TAB PO SCH ×2 (09:00→20:00)
[2018-12-26] MEDS ORDERED: predniSONE 20 MG TAB PO SCH (09:00)
--- NOTE | 2018-12-26 09:05 | PN ---
DATE: 12/26/18 SUBJECTIVE: The patient states she is feeling like she is breathing much better today than previous days. She is still on nasal cannula and she endorses she would like to start to wean off the nasal cannula. Otherwise, she has no new complaints this morning and no new changes per nursing. REVIEW OF SYSTEMS: GENERAL: Denies any acute distress, feels better overall. HEENT: Some slight improvement in nasal cannula and dryness. No sinus pain. CHEST: No chest wall pain, does not feel very short of breath, very minimal cough. CARDIOVASCULAR: Denies chest pain, no palpitations, moderate pedal edema at baseline. ABDOMEN: Denies abdominal pain, normal bowel movements. NEUROLOGIC: No headaches, no confusion. OBJECTIVE: VITAL SIGNS: Temperature 97.8. Pulse 60. Blood pressure 114/56. Respiratory rate 18. Oxygen saturation 92% on 2 liters nasal cannula. GENERAL: She sitting in bed comfortably, no acute distress. CHEST: Lungs are difficult to hear due to body habitus, but no audible wheezes or rales are heard, no chest wall tenderness, no cough during the exam. CARDIOVASCULAR: Normal rate and rhythm, no audible murmurs, 2+ bilateral pitting edema in the lower legs, apparent baseline. NEUROLOGIC: Alert and oriented to person, place and time, no confusion. PSYCHIATRIC: Perfect conversation, somewhat flat affect. LABORATORY: WBCs 8.4, hemoglobin 14.4, platelet count 244. Sodium 140, potassium 3.8, chloride 100, CO2 30, BUN 10, creatinine 0.68. MICROBIOLOGY: Blood cultures negative x2 days. Flu screen negative. IMAGING: Chest x-ray 12/26/18 shows unchanged mild central vascular congestion and mild perihilar and bibasilar opacities representing pulmonary edema, atelectasis or pneumonia. Possible trace bilateral pleural effusion, difficult to assess with body habitus. ASSESSMENT: 1. Bilateral pneumonia. 2. Congestive heart failure with exacerbation. 3. Hypoxia secondary to #1 and #2. 4. Chronic atrial fibrillation on anticoagulation, but current normal sinus rhythm. 5. Chronic hypertension. 6. Diabetes mellitus, type 2. PLAN: Currently, the patient is slowly weaning from oxygen, now on 2 liters nasal cannula, which baseline is no oxygen at all. Due to her stating she feels very well, I transitioned her steroids to oral form, and will continue her proton pump inhibitor while on the steroids. We will continue her home medications, as of now, she seems to be doing very well. Given her chest x-ray findings of unchanging or slightly improving pulmonary congestion but difficult to rule out pneumonia, we will continue the current regimen of 40 mg of Lasix by mouth twice a day as well as Levaquin, which I will change to p.o. form today in pursuit of potential discharge later this afternoon or early tomorrow. She will be able to transition to home once she is able to maintain oxygen on room air. #[id number] [facility]
[2018-12-26 10:27] VITALS: TEMP 98.6
[2018-12-26 14:41] VITALS: BP 125/73
--- NOTE | 2018-12-26 16:52 | DS ---
ADMISSION DIAGNOSIS: 1. Bilateral pneumonia with concerns for healthcare acquired versus community acquired with the patient having recently had a gastric sleeve surgery performed within the last 30 days. 2. Hypoxia secondary to #1, requiring supplemental oxygen in a patient without a history of oxygen dependency. 3. Acute congestive heart failure without a current echocardiogram to review, etiology uncertain, but elevation on BNP on admission with radiographic studies indicating some pulmonary vascular congestion and possible pulmonary edema. 4. New diagnosis of atrial fibrillation on Pradaxa, digoxin and Cardizem with current EKG indicating normal sinus rhythm. 5. Hypertension. 6. Type 2 diabetes mellitus on oral therapy. HISTORY OF PRESENT ILLNESS: Ms. Guevara is a 68-year-old female patient who presented to the Emergency Room last night complaining of 24 hours of worsening shortness of breath. She noted she started to cough and had some hemoptysis. She denied any chest pain, tachycardia, nausea, vomiting or fevers. She did have some chills. Surgical history includes a recent gastric sleeve procedure done in November of [address] [place] [address] Gibbons. She did well postoperatively and then on the , developed atrial fibrillation requiring treatment with Cardizem and was in the hospital in [place] from the through the . She was sent home on Cardizem, digoxin and Pradaxa. She noted she had felt good and the night before last, she had a little episode of urinary incontinence, went to take a shower and became very short of breath that resolved when she went to bed. She noted she is now having more shortness of breath with any exertional effort. Laboratory studies showed she had a mild leukocytosis with a left shift. Chemistries showed she had elevated BNP at 228. Chest x-ray per radiologic interpretation indicated some cardiomegaly with central pulmonary vascular congestion compatible with congestive heart failure along with increased opacities in the left lung and right lower lung, most compatible with pulmonary edema, however, could not entirely exclude an infiltrate. She was given a dose of Lasix as well as started on antibiotics to include Levaquin. Given her symptomatology and findings on x-rays with concerns for both some degree of congestive heart failure exacerbation along with what appears to be developing bilateral pneumonia, the patient is now going to be admitted for further treatment and evaluation. She was admitted in stable condition. HOSPITAL COURSE: Ms. Guevara was initially admitted with a picture of congestive heart failure exacerbation versus pneumonia, or a combination. While inpatient she was started on Lasix p.o., as well as Levaquin IV. She did well, initially requiring 4 liters nasal cannula, and decreasing all the way down to 1 to 2 liters nasal cannula. Her chest x-ray stabilized and showed improving, but slightly stable pulmonary edema. Some resolution of the pneumonia was also noted. Over the past couple of days of admission we were able to transition her steroids to p.o., as well as her Levaquin to p.o., and her PPI to p.o. form. She was evaluated for the need for home O2 the day of discharge, she was approved and it was arranged and brought to her before discharge. She endorsed that she felt back to baseline and was feeling well, and eager to go home. VITAL SIGNS: Temperature 98.6, pulse 86, blood pressure 125/73, respiratory rate 20, O2 saturation 95% on 1.5 liters nasal cannula while documented 88% saturations on room air. LABORATORY AND IMAGING: White blood cell count initially 12.1, down to 8.4. Hemoglobin and platelets were within normal limits throughout admission. Slightly hypokalemic initially, but normalized prior to discharge. BNP at 228, down from 553 from 2 weeks ago. Chest x-ray shows unchanged vascular congestion with stable mild pulmonary edema and trace effusions. DISCHARGE DIAGNOSIS: 1. Bilateral pneumonia. 2. Congestive heart failure with exacerbation. 3. Hypoxia secondary to #1 and #2. 4. Chronic atrial fibrillation on anticoagulation, but current normal sinus rhythm. 5. Chronic hypertension. 6. Diabetes mellitus, type 2. PLAN: Ms. Guevara is stable to be discharged home, to continue her treatment with diuretics and antibiotics by mouth. She was approved for oxygen home therapy, and was given supplies prior to discharge. Given the addition of Lasix, we also have arranged for her to take potassium daily. She will continue steroids for the remainder of 1 week, with an accompanying PPI for GI prophylaxis. She will have a followup with her primary care physician in the next 1 to 2 weeks. #[id number] [facility]
[2018-12-26 17:25] VITALS: O2SAT 93
== END 2018-12-26 19:15 | disposition home or self-care (01) | DRG 195 ==
LOC: ER 19:51 → MS 22:31
PROVIDERS: ADMIT Nurse Practitioner Family; ATTEND Family Medicine
DX: J18.9 Pneumonia, unspecified organism (principal); I11.0 Hypertensive heart disease with heart failure; E66.01 Morbid (severe) obesity due to excess calories; E11.9 Type 2 diabetes mellitus without complications; I50.9 Heart failure, unspecified; I48.2 Chronic atrial fibrillation; E87.6 Hypokalemia; Y95 Nosocomial condition; Z79.01 Long term (current) use of anticoagulants; Z88.0 Allergy status to penicillin; Z98.84 Bariatric surgery status

== ENCOUNTER → 2019-04-13 | Outpatient (CLI) | payer MEDICARE, OTHER | LOC: SL 19:25 | PROVIDERS: ATTEND Internal Medicine Pulmonary Disease | DX: G47.30 Sleep apnea, unspecified (principal); E66.01 Morbid (severe) obesity due to excess calories ==

== ENCOUNTER → 2019-08-04 | Outpatient (CLI) | payer MEDICARE, OTHER ==
--- NOTE | 2019-08-04 17:26 | MAM ---
EXAM DESCRIPTION: 3D Screening BILATERAL : Digital Mammography. CLINICAL HISTORY: 68 years Female SCREEN . No complaints. No personal history or family history of breast cancer. No menarche. No childbirth. Postmenopausal 15+ years. No HRT.. Lifetime risk of developing breast cancer (Tyrer-Cuzick model)(%): 6.4. COMPARISON: Bilateral screening digital breast tomosynthesis 01/21/2018.. TECHNIQUE: Bilateral CC and MLO projection full-field images, digital tomosynthesis mammographic technique Bilateral digital 2-D full-field MLO images. CAD not available for tomosynthesis or 2-D images. FINDINGS: The breast parenchymal density pattern is: Almost entirely fatty. No skin thickening or nipple retraction. Bilateral axillary lymph nodes. Bilateral solitary microcalcifications. Skin mole posterior inferior left breast. No new focal, stellate mass or density, focal asymmetry , and no suspicious microcalcifications Stable mammograms compared to prior study. IMPRESSION: Benign exam. BIRAD CATEGORY: 2 BENIGN FINDINGS. RECOMMENDATIONS: FOLLOW UP: Routine digital bilateral mammographic screening, one year interval from July 2019. Written communication explaining the IMPRESSION and follow-up, will be mailed to the patient and referring health care provider. According to the [employer], yearly mammograms are recommended starting at age 40 and continuing as long as a woman is in good health. Any breast change noted on a breast self-exam should be reported promptly to the patient's healthcare provider. Breast MRI is recommended for women with an approximately 20-25% or greater lifetime risk of breast cancer, including women with a strong family history of breast or ovarian cancer and women who have been treated for Hodgkin's disease. A negative mammographic report should not delay tissue diagnosis in patients with significant clinical history or physical findings. Extremely dense breast tissue limits the sensitivity of digital mammography. Electronically signed by: Michael Cruz MD 08/04/2019 5:24 PM CDT
== END ==
LOC: MAMMO 10:00
PROVIDERS: ATTEND Family Medicine
DX: Z12.31 Encounter for screening mammogram for malignant neoplasm of breast (principal)

== ENCOUNTER → 2019-08-12 | Outpatient (CLI) | payer MEDICARE, OTHER | LOC: GMAE 12:21 | PROVIDERS: ATTEND Family Medicine | DX: I10 Essential (primary) hypertension (principal); E11.40 Type 2 diabetes mellitus with diabetic neuropathy, unspecified; E78.2 Mixed hyperlipidemia ==

== ENCOUNTER → 2019-09-07 | Outpatient (CLI) | payer MEDICARE, OTHER | END | disposition home or self-care (01) | LOC: SL 19:14 | PROVIDERS: ATTEND Family Medicine | DX: G47.33 Obstructive sleep apnea (adult) (pediatric) (principal); R06.83 Snoring; I10 Essential (primary) hypertension ==

== ENCOUNTER → 2019-10-08 | Outpatient (CLI) | payer MEDICARE, OTHER | LOC: LAB.O 13:09 | PROVIDERS: ATTEND Internal Medicine Gastroenterology | DX: R19.7 Diarrhea, unspecified (principal) ==

== ENCOUNTER → 2020-05-04 | Outpatient (CLI) | payer MEDICARE, OTHER ==
--- NOTE | 2020-05-04 11:07 | CT ---
EXAM DESCRIPTION: Abdomen/Pelvis w/wo Contrast CLINICAL HISTORY: UNSPECIFIED ABDOMINAL PAIN COMPARISON: February 04, 2017 TECHNIQUE: Pre and postcontrast CT images of the abdomen and pelvis are obtained using standard imaging protocol. Images are mildly moderately degraded by patient breathing motion artifact. This exam was performed according to our departmental dose-optimization program, which includes automated exposure control, adjustment of the mA and/or kV according to patient size and/or use of iterative reconstruction technique . FINDINGS: Visualized lung bases show no acute findings. Heart is enlarged. Calcifications of the mitral valve annulus are seen. Postsurgical changes from gastric stapling are again seen. No enhancing hepatic lesions. The spleen, pancreas, and right adrenal gland are unremarkable. Left adrenal gland measures 1.9 cm with Hounsfield units of negative for. Gallbladder is unremarkable. No biliary tract obstruction. Mild atherosclerotic disease. No nephrolithiasis. No ureteral calcification or obstruction. Urinary bladder is contracted and not well evaluated. The uterus is unremarkable. Ovaries are not well identified. No abnormal adnexal mass. The appendix is small and unremarkable. Small hiatal hernia seen. No small bowel obstruction or bowel wall thickening. Moderate scattered diverticuli of the mainly descending to sigmoid colon without associated inflammatory changes or fluid collections. No pathologically enlarged abdominal or retroperitoneal lymphadenopathy. The osseous structures show no aggressive bony lesions. Moderate to severe disc degenerative changes and facet arthropathy of the lumbar spine with mild levocurvature of the mid lumbar spine. IMPRESSION: No acute findings on CT of the abdomen and pelvis. Postsurgical changes to the stomach are again identified. Colon diverticulosis without CT evidence of diverticulitis is seen. Urinary bladder is contracted and not well evaluated on this Electronically signed by: Dennis Jansen MD 05/04/2020 11:06 AM CDT
== END ==
LOC: CT 08:22
PROVIDERS: ATTEND Internal Medicine Gastroenterology
DX: Z01.812 Encounter for preprocedural laboratory examination (principal); K57.30 Diverticulosis of large intestine without perforation or abscess without bleeding; R19.7 Diarrhea, unspecified; Z98.890 Other specified postprocedural states

== ENCOUNTER → 2020-08-10 | Outpatient (CLI) | payer MEDICARE, OTHER ==
--- NOTE | 2020-08-15 15:54 | MAM ---
EXAM DESCRIPTION: 3D Screening BILATERAL : Digital Mammography. CLINICAL HISTORY: 69 years Female ANNUAL SCREENING . No complaints. No family history breast cancer. Menarche age 16. Childbirth no. Menopause age unknown. No HRT.. Lifetime risk of developing breast cancer (Tyrer-Cuzick model)(%): 6.1. COMPARISON: Bilateral screening digital breast tomosynthesis July 2019 and January 2018. TECHNIQUE: Bilateral CC and MLO projection full-field images, digital tomosynthesis mammographic technique. Bilateral digital 2-D full-field MLO images. CAD available for 2-D images. FINDINGS: The breast parenchymal density pattern is: Scattered areas of fibroglandular density. No skin thickening or nipple retraction. Solitary microcalcifications. Axillary nodes stable. No new focal, stellate mass or density, focal asymmetry , and no suspicious microcalcifications bilaterally. Stable mammograms compared to prior study. IMPRESSION: Benign exam. BIRAD CATEGORY: 2 BENIGN FINDINGS. RECOMMENDATIONS: FOLLOW UP: Routine digital bilateral mammographic screening, one year interval from July 2020. Written communication explaining the IMPRESSION and follow-up, will be mailed to the patient and referring health care provider. According to the [employer], yearly mammograms are recommended starting at age 40 and continuing as long as a woman is in good health. Any breast change noted on a breast self-exam should be reported promptly to the patient's healthcare provider. Breast MRI is recommended for women with an approximately 20-25% or greater lifetime risk of breast cancer, including women with a strong family history of breast or ovarian cancer and women who have been treated for Hodgkin's disease. A negative mammographic report should not delay tissue diagnosis in patients with significant clinical history or physical findings. Extremely dense breast tissue limits the sensitivity of digital mammography. Electronically signed by: Michael Cruz MD 08/15/2020 3:53 PM CDT
== END ==
LOC: MAMMO 09:55
PROVIDERS: ATTEND Family Medicine
DX: Z12.31 Encounter for screening mammogram for malignant neoplasm of breast (principal)

== ENCOUNTER → 2020-08-17 | Outpatient (CLI) | payer MEDICARE, OTHER | LOC: GMAE 10:43 | PROVIDERS: ATTEND Family Medicine | DX: I10 Essential (primary) hypertension (principal); E78.2 Mixed hyperlipidemia; E11.40 Type 2 diabetes mellitus with diabetic neuropathy, unspecified ==